=== PATIENT | male | born 1925 | race Caucasian/White ===

== ENCOUNTER 2017-02-25 14:34 | Emergency (ER) ==
[2017-02-25 14:43] VITALS: BP 159/70; TEMP 97.5; BMI 24.1
--- NOTE | 2017-02-25 15:22 | ED.PDOC ---
General ED Provider: Dr. CUAUHTEMOC ABEBE Chief Complaint: Head Injury Stated Complaint: head injury Time Seen by Physician: 14:35 Mode of Arrival: Stretcher Information Source: Patient, EMT Primary Care Provider: RADHA SATNLEY Nursing and Triage Documentation Reviewed and Agree: Yes (PRESENT ALISSA HERNANDEZ PT DENIED PAIN EXCEPT FOR HEAD AND NECK ) Trauma/Injury Complaint Exam - Head Injury Complaint/Exam Mechanism of Injury: Reports: Trauma Onset/Duration: 1 HR AGO FALL FROM STANDING POSTION NI MOTOR/SENSORY DEFICITS Symptoms Are: Still present Initial Severity: Mild Current Severity: Mild Character: Reports: Dull Aggravating: Reports: None Alleviating: Reports: None Associated Signs and Symptoms: Reports: Neck pain. Denies: Confusion, Memory loss, Seizure, Epistaxis, Dental malocclusion, Nausea, Vomiting Loss of Consciousness: None SDH Risk Factors: Present: Male, Anticoagulant use Cervical Spine Injury Risk Factors: Present: Evidence of intoxication, Altered LOC, Focal neuro deficit, Distracting injuries Related Surgical History: Reports: None Glascow Coma Scale (see protocol): 15 Focal Weakness: Present: None Focal Sensory Loss: Present: None Gait: Unable Gag Reflex Present: Yes Finger to Nose: Normal Nexus Low Risk Criteria: No evidence of intoxicat., No Altered LOC, No focal neuro deficit, No distracting injuries Differential Diagnoses: Trauma Review of Systems - Review Of Systems Constitutional: Reports: No symptoms Eyes: Reports: No symptoms Ears, Nose, Mouth, Throat: Reports: No symptoms Respiratory: Reports: No symptoms Cardiac: Reports: No symptoms GI: Reports: No symptoms : Reports: No symptoms Musculoskeletal: Reports: Neck pain Skin: Reports: No symptoms Neurological: Reports: Headache Endocrine: Reports: No symptoms Hematologic/Lymphatic: Reports: No symptoms All Other Systems: Reviewed and Negative Past Medical History - Past Medical History Previously Healthy: No Endocrine: Reports: Hypothyroid Cardiovascular: Reports: Hypertension Respiratory: Reports: Pneumonia Hematological: Reports: None Gastrointestinal: Reports: None Genitourinary: Reports: None Neuro/Psych: Reports: None Musculoskeletal: Reports: None Cancer: Reports: None - Surgical History General Surgical History: Reports: None - Family History Family History: Reports: None - Social History Smoking Status: Former smoker Hx Substance Use: No Alcohol Screening: None - Immunizations Tetanus Shot up to Date: (unknown) Physical Exam - Physical Exam Appearance: Well-appearing, No pain distress, Well-nourished Eyes: ESPINOZA, EOMI, Conjunctiva clear ENT: Ears normal, Nose normal, Oropharynx normal Respiratory: Airway patent, Breath sounds clear, Breath sounds equal, Respirations nonlabored Cardiovascular: RRR, Pulses normal, No rub, No murmur GI/: Soft, Nontender, No masses, Bowel sounds normal, No Organomegaly Musculoskeletal: ROM intact (arasion right 5th finger ) Skin: Warm, Dry (1cm linear abrasion right orbit rim, abrasion , contusion forhead) Neurological: Sensation intact, Motor intact, Reflexes intact, Cranial nerves intact, Alert, Oriented Psychiatric: Affect appropriate, Mood appropriate Procedures - Laceration/Wound Repair No standard instances Wound Description: Linear, Other (see photos) Wound Length (cm): 1cm right orbit rim see photos Wound Width: 2mm Wound Depth: 2mm Wound Explored: Clean Wound Irrigated: No Wound Prep: Saline, Hibiclens Anesthesia: Lidocaine (plain 1 ml) Wound Debrided: Minimal Wound Repaired With: Sutures Suture Size and Type: prolene 3 Number of Sutures: 3 Number of [place]: 0 Layer Closure?: No Critical Care Note - Critical Care Note Total Time (mins): 0 Course - Course Orders, Labs, Meds: Orders Category Date Time Status PARTIAL THROMBOPLASTIN TIME Stat LAB 02/25/17 14:35 Ordered PT WITH INR Stat LAB 02/25/17 14:[address] CERVICAL SPINE W/O CONTRAST Stat RADS 02/25/17 14:[address] HEAD W/O CONTRAST Stat RADS 02/25/17 14:35 Ordered HAND, RIGHT 3 VIEWS Stat RADS 02/25/17 14:36 Ordered Vital Signs: Temp Pulse Resp BP Pulse Ox 02/25/17 14:34 97.5 F L 66 22 159/70 H 96 Departure - Departure Time of Disposition: 16:00 (PHOTOS ATTACHED ) Disposition: HOME SELF-CARE Discharge Problem: Injury of head Facial hematoma Qualifiers: Encounter type: initial encounter Qualifier Code: (S00.83XA) Contusion of other part of head, initial encounter Instructions: Head Injury (ED) Condition: Good Pt referred to PMD for follow-up: No Additional Instructions: Please call your Family Physician as soon as possible to schedule a follow-up appointment. Allergies/Adverse Reactions: Allergies ORANGE PEEL Adverse Reaction (Uncoded 01/23/15 14:46) Home Medications: Ambulatory Orders Digoxin 125 mcg PO MOTUWETHFRSA 01/23/15 Flecainide Acetate 50 mg PO BID 01/23/15 Metoprolol Succinate 50 mg PO BID 01/23/15 B2/Vit A,C & E/Lut/Zeaxanth/Mn [Icaps Tablet] 2 each PO DAILY 05/08/16 Dabigatran Etexilate Mesylate [Pradaxa] 150 mg PO BID 05/08/16 Levothyroxine Sodium [Unithroid] 50 mcg PO DAILY LAB 05/08/16 [place]-3 Fatty Acids/Fish Oil [Fish Oil 1,000 mg Capsule] 1 gm PO BID 05/08/16 Pantoprazole Sodium [Protonix] 40 mg PO QDAC #30 tablet. 05/12/16 Escitalopram Oxalate [Lexapro] 10 mg PO DAILY 02/25/17 Ferrous Sulfate [Iron] 325 mg PO BID 02/25/17 Hydrochlorothiazide 12.5 mg PO DAILY 02/25/17 Lisinopril 10 mg PO DAILY 02/25/17 Pravastatin Sodium [Pravachol] 20 mg PO BEDTIME 02/25/17 Disposition Discussed With: Patient, Family
[2017-02-25] MEDS ORDERED: LIDOCAINE 1 % AMP 5 ML (SUTURES) SUBCUT STA (15:23)
[2017-02-25 15:24] LABS: PARTIAL THROMBOPLASTIN TIME 43.2 SEC (23.9-40.0); PROTHROMBIN TIME 13.5 SEC (9.3-11.0)
--- NOTE | 2017-02-25 15:29 | DI ---
Exam: Three x-rays of the right hand. Comparison: None available. Reason for exam: Pain. FINDINGS: No acute fracture or dislocation. Mild degenerative changes are seen in the first metacar pal phalangeal joint space and distal interphalangeal joint spaces. No radiopaque retained foreign b odies or unexplained calcific soft tissue densities. Impression: No acute fracture or this location in the right hand with mild degenerative disease.
[2017-02-25] MEDS ORDERED: TENIVAC IM ONE (15:38)
--- NOTE | 2017-02-25 15:45 | CT ---
EXAM: CT Head HISTORY: Trauma COMPARISON: 01/23/2015 TECHNIQUE: CT head performed without contrast FINDINGS: There is no mass effect, midline shift, or intracranial hemmorhage. Mckinney white different iation is preserved. There is no extra-axial collection. The ventricles, sulci, and basal cisterns are patent and symmetric. Chronic ischemic disease of the white matter with chronic-appearing righ t lacunar infarct. Cerebral volume loss. There is no depressed calvarial fracture. The mastoid air cells are clear. The visualized paranasal sinuses are clear. There are intracranial atherosclerotic calcifications. Right frontal scalp hematoma and laceration. Please see separate report CT cervical spine, with fractures C1 and C2, incompletely evaluated IMPRESSION: 1. No acute intracranial abnormality. 2. 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 Cereb ral volume loss. 3. Right frontal scalp hematoma and laceration. No depressed calvarial fracture. 4. Please see separate report CT cervical spine, with fractures C1 and C2, incompletely evaluated
--- NOTE | 2017-02-25 15:53 | CT ---
Exam: CT exam of the cervical spine without intravenous contrast. Comparison: None available. Reason for exam: Pain. FINDINGS: There is a comminuted fracture of the C1 cervical arch with multiple fracture fragments. There is a displaced fracture of the dens (type 2) with posterior angulation. Multilevel degenerative disease is seen throughout the cervical spine. There is grade 1 anterior li sthesis of C4 on C5. Intervertebral body disc space height loss is seen most notably at C5-6, C6-7 and C7-T1. The prevertebral soft tissues are within normal limits. No other discrete fractures are seen. The osseous structures are diffusely demineralized. Air-fluid levels within the esophagus may be mucous or retained food products. Impression: 1. Comminuted fracture of the C1 cervical arch (Kian fracture). 2. Displaced type 2 dens fracture with possible disruption of the transverse ligament. Recommend sp ine surgery consultation and cervical immobilization. If clinical concern exists for ligamentous in jury, MRI should be performed. 3. Grade 1 anterolisthesis of C4 on C5 is likely degenerative. Although, given the patients other findings, ligamentous injury cannot be ruled out. If there is a clinical concern for a soft tissue/ ligamentous injury, MRI may be performed. 4. Multilevel degenerative disease with diffuse demineralization of the osseous structures. Image interpretation was discussed directly with the ordering physician at 1547 hours on 02/25/2017. Report was faxed at the same time.
[2017-02-25 16:22] LABS: BASOPHILS % (AUTO) 0.5 % (0.0-3.0); EOSINOPHILS # (AUTO) 0.2 K/ul (0.0-0.7); EOSINOPHILS % (AUTO) 2.2 % (0.0-7.0); HEMATOCRIT 38.2 % (42.0-52.0); HEMOGLOBIN 13.3 g/dl (14.0-18.0); IMMATURE GRANULOCYTE % (AUTO) 0.6 % (0.0-5.0); LYMPHOCYTES # (AUTO) 1.4 K/uL (0.60-3.4); LYMPHOCYTES % (AUTO) 15.7 (10.0-50.0); MEAN CORPUSCULAR HEMOGLOBIN 34.3 pg (27.0-31.0); MEAN CORPUSCULAR HGB CONC 34.8 (31.8-35.4); MEAN CORPUSCULAR VOLUME 98.5 fl (80.0-94.0); MONOCYTES # (AUTO) 0.8 K/uL (0.4-2.0); MONOCYTES % (AUTO) 8.9 (0-10); NEUTROPHILS # (AUTO) 6.2 K/ul (2.0-6.9); NEUTROPHILS % (AUTO) 72.1; PLATELET COUNT 135 10^3/uL (140-440); RED BLOOD COUNT 3.88 10^6/ul (4.70-6.10); WHITE BLOOD COUNT 8.62 K/ul (4.2-10.2)
[2017-02-25 16:31] LABS: ALBUMIN 3.9 g/dL (3.4-5.0); ALBUMIN/GLOBULIN RATIO 0.93; ANION GAP 15.3; BILIRUBIN,TOTAL 0.4 mg/dL (0.00-1.20); BUN/CREATININE RATIO 19.39; CALCIUM 9.4 mg/dL (8.2-10.2); CREATININE 1.65 mg/dL (0.60-1.10); POTASSIUM 4.3 mmol/L (3.5-5.1); TOTAL PROTEIN 8.1 g/dL (5.8-8.1)
== END 2017-02-25 17:15 | disposition short-term general hospital (02) ==
LOC: ED 14:34
DX: S05.41XA Penetrating wound of orbit with or without foreign body, right eye, initial encounter (principal); S12.111A Posterior displaced Type II dens fracture, initial encounter for closed fracture; S12.030A Displaced posterior arch fracture of first cervical vertebra, initial encounter for closed fracture; S00.83XA Contusion of other part of head, initial encounter; E03.9 Hypothyroidism, unspecified; I10 Essential (primary) hypertension; W19.XXXA Unspecified fall, initial encounter; Z79.01 Long term (current) use of anticoagulants; Z79.899 Other long term (current) drug therapy
CPT/HCPCS: 36415; 80053; 85025; 85610; 85730; 90471; 93005; 93010; 99285

== ENCOUNTER 2017-02-25 17:16 | Outpatient (CLI) ==
[2017-02-25 14:43] VITALS: BMI 24.1
== END 2017-02-25 17:17 ==
LOC: AMBL 17:16
PROVIDERS: ATTEND Internal Medicine
DX: S12.000A Unspecified displaced fracture of first cervical vertebra, initial encounter for closed fracture (principal); S12.100A Unspecified displaced fracture of second cervical vertebra, initial encounter for closed fracture; W19.XXXA Unspecified fall, initial encounter; I48.91 Unspecified atrial fibrillation; Z79.01 Long term (current) use of anticoagulants